=== PATIENT | female | born 1970 | race Caucasian/White ===

== ENCOUNTER 2016-09-28 14:46 | Emergency (ER) | payer OTHER ==
[~2016-09-28] VITALS: Ht 160 cm; Wt 63.5 kg
[2016-09-28 14:57] VITALS: BP 134/93
--- NOTE | 2016-09-28 18:24 | NUR ---
PT AMBULATED TO BED 2 AT THIS TIME.
--- NOTE | 2016-09-28 18:26 | NUR ---
aPATIENT PRESENTS TO ED C/O HEAVY VAG BLEED X 1 DAY---HX UTERUS CYST/TUMOR?? DENIES N/V/D; SKIN IS PINK/WARM/DRY; AAOX4 WITH EVEN AND STEADY GAIT; LUNGS CLEAR BL; HR EVEN AND REGULAR; PT DENIES ANY FEVER, CP, SOB, OR COUGH AT THIS TIME; PATIENT STATES PAIN OF 7/10 AT THIS TIME; PATIENT POSITIONED FOR COMFORT; HOB ELEVATED; BEDRAILS UP X2; BED DOWN. ER MD MADE AWARE OF PT STATUS.
--- NOTE | 2016-09-28 19:13 | NUR ---
REPORT GIVEN TO FAVIAN BACH.
--- NOTE | 2016-09-28 19:15 | NUR ---
GOT REPORT FROM FAVIAN MARTIN. PATIENT RESTING IN BED, NO S/SX OF DISTRESS.
[2016-09-28] MEDS ORDERED: KETOROLAC 30 MG/ML VIAL IM ONE (19:30)
--- NOTE | 2016-09-28 19:45 | NUR ---
Patient discharged with v/s stable. Written and verbal after care instructions given and explained. Patient alert, oriented and verbalized understanding of instructions. Ambulatory with steady gait. All questions addressed prior to discharge. ID band removed. Patient advised to follow up with PMD. Rx of NAPROSYN 500 MG given. Patient educated on indication of medication including possible reaction and side effects. Opportunity to ask questions provided and answered.
[2016-09-28 19:46] VITALS: BP 125/85
== END 2016-09-28 19:45 | disposition home or self-care (01) ==
LOC: MED 14:46
DX: N94.6 Dysmenorrhea, unspecified (principal); D21.9 Benign neoplasm of connective and other soft tissue, unspecified
CPT/HCPCS: 36415; 80053; 81001; 81025; 85025; 85610; 85730; 96372; 99284; J1885

== ENCOUNTER 2020-02-12 16:06 | Emergency (ER) | payer OTHER, SELFPAY ==
[~2020-02-12] VITALS: Ht 149.9 cm; Wt 65.0 kg
[2020-02-12 16:40] VITALS: BP 123/80
--- NOTE | 2020-02-12 17:00 | NUR ---
PT DENIES ANY SYMPTOMS, STATES SHE WAS IN CONTACT WITH COVID+ PT. RR EVEN AND UNLABORED, VSS. MEDHX: ARTHRITIS
--- NOTE | 2020-02-12 17:25 | NUR ---
COVID-19 SWAB COLLECTED
[2020-02-12 17:33] VITALS: BP 123/80
--- NOTE | 2020-02-12 17:33 | NUR ---
Patient discharged with v/s stable. Written and verbal after care instructions given and explained. Patient verbalized understanding. Ambulatory with steady gait. All questions addressed prior to discharge. Advised to follow up with PMD.
== END 2020-02-12 17:33 | disposition home or self-care (01) ==
LOC: MED 16:06 → EEVIPCON 16:06 → MED 17:33
DX: J06.9 Acute upper respiratory infection, unspecified (principal); Z20.828 Contact with and (suspected) exposure to other viral communicable diseases; Z98.890 Other specified postprocedural states
CPT/HCPCS: 99283; U0003

== ENCOUNTER 2023-06-20 10:58 | Emergency (ER) | payer OTHER ==
[~2023-06-20] VITALS: Ht 152.4 cm; Wt 63.5 kg
[2023-06-20 11:07] VITALS: BP 125/79; PULSE 74; RESP 15; TEMP 97.8; O2SAT 97
[2023-06-20 11:30] VITALS: BP 125/79; PULSE 74; RESP 15; TEMP 97.8; O2SAT 97
[2023-06-20] MEDS ORDERED: ACETAMINOPHEN EXTRA STRENGTH 500 MG TAB PO ONE (11:35)
[2023-06-20] MEDS ORDERED: ACET-10509 PO (13:05)
== END 2023-06-20 13:22 | disposition home or self-care (01) ==
LOC: MED 10:58
DX: S00.03XA Contusion of scalp, initial encounter (principal); X58.XXXA Exposure to other specified factors, initial encounter; Y93.89 Activity, other specified; Y92.89 Other specified places as the place of occurrence of the external cause; Y99.8 Other external cause status
CPT/HCPCS: 70450; 99284

== ENCOUNTER 2024-02-07 09:33 | Emergency (ER) | payer OTHER ==
[~2024-02-07] VITALS: Ht 152.4 cm; Wt 69.9 kg
[~2024-02-07 09:33] MED LIST: ACET-10509 PO
[2024-02-07 09:38] VITALS: BP 135/81; PULSE 72; RESP 16; TEMP 97.6; O2SAT 96
[2024-02-07 09:51] VITALS: BP 139/77; PULSE 67; RESP 16; TEMP 97.6; O2SAT 96
[2024-02-07] MEDS: diphenhydrAMINE 50 MG CAP PO ONE (10:22)
[2024-02-07] MEDS: predniSONE 20 MG TAB PO ONE (10:22)
[2024-02-07] MEDS: FAMOTIDINE 20 MG TAB PO ONE (10:24)
[2024-02-07] MEDS ORDERED: BEN50 PO (10:59)
[2024-02-07] MEDS ORDERED: PRED20TA5 PO (10:59)
== END 2024-02-07 11:12 | disposition home or self-care (01) ==
LOC: MED 09:33
DX: T78.49XA Other allergy, initial encounter (principal); R21 Rash and other nonspecific skin eruption; L29.9 Pruritus, unspecified; Z79.1 Long term (current) use of non-steroidal anti-inflammatories (NSAID); Z79.899 Other long term (current) drug therapy; X58.XXXA Exposure to other specified factors, initial encounter
CPT/HCPCS: 99284; J7512; Q0163